=== PATIENT | female | born 1995 | race Hispanic/Latino ===

== ENCOUNTER 2019-12-16 09:36 | Emergency (ER) | payer OTHER ==
[2019-12-16 10:24] LABS: APPEARANCE,URINE Cloudy (CLEAR); BILIRUBIN,URINE Negative (NEGATIVE); COLOR,URINE Orange (YELLOW); GLUCOSE, URINE (UA) Negative (NEGATIVE); KETONES,URINE Negative (NEGATIVE); LEUKOCYTE ESTERASE ,URINE Large (NEGATIVE); NITRATE,URINE Negative (NEGATIVE); OCCULT BLOOD,URINE Large (NEGATIVE); PH,URINE 5.5 (5.0-8.0); PROTEIN,URINE Negative (NEGATIVE); UROBILINOGEN,URINE 0.2 mg/dL (0.2-1.0)
[2019-12-16 10:38] LABS: BACTERIA,URINE Few /HPF (None Seen); SQUAMOUS EPITHELIAL CELL,UR Moderate /HPF (0-2); WBC,URINE 0-1 /HPF (0-1)
[2019-12-16] MEDS ORDERED: LIDOCAINE HCL-MPF 1% 2ML VIAL ONE (12:54)
[2019-12-16] MEDS ORDERED: CEFTRIAXONE SODIUM 500 MG VIAL ONE (12:54)
[2019-12-16] MEDS ORDERED: ONDANSETRON ODT 4 MG TAB ONE (12:55)
[2019-12-16] MEDS ORDERED: AZITHROMYCIN 250 MG TABLET PO ONE (12:55)
== END 2019-12-16 14:00 | disposition home or self-care (01) ==
LOC: EDH 09:36
DX: R10.2 Pelvic and perineal pain (principal)
CPT/HCPCS: 81001; 81025; 87210; 87486; 87797; 96372; 99283; J0696; J3490

== ENCOUNTER 2019-12-17 03:46 | Emergency (ER) | payer OTHER ==
[2019-12-17 04:25] LABS: BASOPHILS % (AUTO) 0.1 % (0.0-5.0); EOSINOPHILS % (AUTO) 0.2 % (0.0-8.0); HEMATOCRIT 37.8 % (36-48); LYMPHOCYTES % (AUTO) 11.6 % (21.0-51.0); MEAN CORPUSCULAR HEMOGLOBIN 28.4 pg (27.0-33.0); MEAN CORPUSCULAR HGB CONC 32.3 g/dL (32.0-36.0); MEAN CORPUSCULAR VOLUME 88.1 fL (79-99); MONOCYTES % (AUTO) 0.4 % (3.0-13.0); NEUTROPHILS % (AUTO) 87.5 % (40.0-77.0); PLATELET COUNT (AUTO) 310 K/uL (130-400); RED BLOOD CELL COUNT(AUTO) 4.29 MIL/uL (4.00-5.50); RED CELL DISTRIBUTION WIDTH 13.3 % (11.0-15.5); WHITE BLOOD COUNT (AUTO) 8.3 K/uL (4.8-10.8)
[2019-12-17 04:35] LABS: CREATININE 0.8 mg/dL (0.5-1.5); POTASSIUM 3.4 mmol/L (3.5-5.1)
[2019-12-17 04:40] LABS: ALBUMIN 3.4 g/dL (3.5-5.0); BILIRUBIN,TOTAL 0.7 mg/dL (0.2-1.0); TOTAL PROTEIN, SERUM 7.4 g/dL (6.0-8.3)
[2019-12-17 04:55] LABS: BILIRUBIN,URINE Small (NEGATIVE); COLOR,URINE Red (YELLOW); GLUCOSE, URINE (UA) Negative (NEGATIVE); KETONES,URINE Negative (NEGATIVE); LEUKOCYTE ESTERASE ,URINE Moderate (NEGATIVE); NITRATE,URINE Negative (NEGATIVE); OCCULT BLOOD,URINE Large (NEGATIVE); PROTEIN,URINE POS 1+ mg/dL (NEGATIVE)
[2019-12-17 04:56] LABS: HCG,QUAL RESULT NEGATIVE (NEGATIVE)
[2019-12-17 04:57] LABS: APPEARANCE,URINE CLOUDY (CLEAR)
[2019-12-17 05:05] LABS: RBC,URINE >100 /HPF (0-1)
[2019-12-17 05:06] LABS: BACTERIA,URINE Few /HPF (None Seen)
[2019-12-17 05:17] LABS: AMPHET/METH SCREEN,URINE NEGATIVE (NEGATIVE); BARBITURATE SCREEN, URINE NEGATIVE (NEGATIVE); BENZODIAZEPINES SCREEN,URINE POSITIVE (NEGATIVE); CANNABINOID SCREEN,URINE NEGATIVE (NEGATIVE); COCAINE SCREEN,URINE NEGATIVE (NEGATIVE); OPIATE SCREEN,URINE NEGATIVE (NEGATIVE); PHENCYCLIDINE SCREEN,URINE NEGATIVE (NEGATIVE)
[2019-12-17] MEDS ORDERED: HYOSCYAMINE SULFATE 0.125 MG TAB.SUBL SL ONE (05:38)
[2019-12-18 08:12] LABS: HEPATITIS A ANTIBODY IGM Negative (Negative); HEPATITIS B CORE IGM Negative (Negative); HEPATITIS Bs ANTIGEN SCREEN P Negative (Negative)
== END 2019-12-17 06:03 | disposition home or self-care (01) ==
LOC: EDH 03:46
DX: K75.2 Nonspecific reactive hepatitis (principal); R10.9 Unspecified abdominal pain; F19.10 Other psychoactive substance abuse, uncomplicated
CPT/HCPCS: 36415; 76705; 80053; 80074; 80305; 81025; 82150; 83690; 85025